=== PATIENT | female | born 1975 | race Caucasian/White ===

== ENCOUNTER 2018-12-25 12:07 | Emergency (ER) | payer OTHER ==
[~2018-12-25] VITALS: Ht 144.8 cm; Wt 70.7 kg
[2018-12-25 12:12] VITALS: BP 149/90
[2018-12-25] MEDS ORDERED: IV NORMAL SALINE 1,000ML 1,000 ML IV ONE (12:30)
[2018-12-25] MEDS ORDERED: KETOROLAC 30 MG/ML VIAL. IV ONE (12:30)
--- NOTE | 2018-12-25 12:33 | PHYS DOC ---
Past History Past Medical History: Anxiety, Depression, Diabetes, High Cholesterol, Hypertension Past Surgical History: Cholecystectomy Alcohol Use: Occasionally Drug Use: None Adult General Chief Complaint Chief Complaint: MECHANICAL FALL HPI HPI 43-year-old female presents after fall at work. Patient works at [employer]. She was breaking down some boxes when she slipped on something and fell straight back and hit her head against the floor. She did not lose consciousness. She does have a headache and feels slightly dizzy at this time. She denies any neck pain. EMS did place her in a collar precaution purposes. She denies numbness, tingling, altered sensation of any kind. She denies any other pain. Review of Systems Review of Systems Constitutional: Denies fever or chills [] Eyes: Denies change in visual acuity, redness, or eye pain [] HENT: Denies nasal congestion or sore throat [] Respiratory: Denies cough or shortness of breath [] Cardiovascular: No additional information not addressed in HPI [] GI: Denies abdominal pain, nausea, vomiting, bloody stools or diarrhea [] : Denies dysuria or hematuria [] Musculoskeletal: Denies back pain or joint pain [] Integument: Denies rash or skin lesions [] Neurologic: Headache. Denies focal weakness or sensory changes [] Endocrine: Denies polyuria or polydipsia [] All other systems were reviewed and found to be within normal limits, except as documented in this note. Current Medications Current Medications Current Medications Medications (Trade) Dose Ordered Sig/[facility] Start Time Stop Time Status Last Admin Dose Admin Ketorolac Tromethamine (Toradol 30mg Vial) 30 mg 1X ONCE 12/25/18 12:30 12/25/18 12:31 UNV Sodium Chloride 1,000 ml @ 1,000 mls/hr 1X ONCE 12/25/18 12:30 12/25/18 13:29 UNV Physical Exam Physical Exam Constitutional: Well developed, well nourished, no acute distress, non-toxic appearance. [] HENT: Normocephalic, atraumatic, bilateral external ears normal, oropharynx moist, no oral exudates, nose normal. [] Eyes: PERRLA, EOMI, conjunctiva normal, no discharge. [] Neck: Normal range of motion, no tenderness, supple, no stridor. [] Cardiovascular:Heart rate regular rhythm, no murmur [] Lungs & Thorax: Bilateral breath sounds clear to auscultation [] Abdomen: Bowel sounds normal, soft, no tenderness, no masses, no pulsatile masses. [] Skin: Warm, dry, no erythema, no rash. [] Back: No tenderness, no CVA tenderness. [] Extremities: No tenderness, no cyanosis, no clubbing, ROM intact, no edema. [] Neurologic: Alert and oriented X 3, normal motor function, normal sensory function, no focal deficits noted. [] Psychologic: Affect normal, judgement normal, mood normal. [] Current Patient Data Vital Signs Vital Signs Date Time Temp Pulse Resp B/P (MAP) Pulse Ox O2 Delivery O2 Flow Rate FiO2 12/25/18 12:12 98.2 115 18 97 Room Air EKG EKG Sinus tachycardia, rate 113, normal axis, no strabismus or depressions.[] Radiology/Procedures Radiology/Procedures [] Impressions: Examination: CT HEAD WO CONTRAST History: Fall, hit the head, pain Comparison/Correlation: None Findings: Axial images of the head were obtained without contrast. Mild atrophy is present. No intracranial hemorrhage, midline shift, or mass effect. Bony structures are unremarkable. Impression: No acute process. PQRS Compliance Statement: One or more of the following individualized dose reduction techniques were utilized for this examination: 1. Automated exposure control 2. Adjustment of the mA and/or kV according to patient size 3. Use of iterative reconstruction technique Electronically signed by: Dean Siddiqi MD (12/25/2018 12:43 PM) [facility] DICTATED AND SIGNED BY: DEAN SIDDIQI MD DATE: 12/25/18 1243 CC: BENEDICT MORAN DO ~ Course & Med Decision Making Course & Med Decision Making Pertinent Labs and Imaging studies reviewed. (See chart for details) I evaluated the patient's neck while she was in a cervical collar. She had no bony tenderness. I removed the collar and evaluated range of motion. She had no numbness or tingling or significant pain with these motions. Her cervical collar is not necessary. The patient's head CT is negative for acute findings. Her EKG shows sinus tachycardia. The patient tells me that she has known tachycardia at baseline. She is not sure why but states that this is a chronic problem. For her headache, given her 30 mg of Toradol and a liter of normal saline. I have additionally given her 10 mg of Reglan and 25 mg Benadryl. The patient has urinary tract infection. I will give her 1 g of Rocephin IV in the ED and nitrofurantoin for 5 days at home. She is feeling better at this time. She is stable for discharge. [] Dragon Disclaimer Dragon Disclaimer This electronic medical record was generated, in whole or in part, using a voice recognition dictation system. Departure Departure: Impression: Primary Impression: Fall from slip, trip, or stumble Additional Impressions: Closed head injury Urinary tract infection Disposition: HOME, SELF-CARE Condition: STABLE Patient Instructions: Head Injury, Adult, [id number] Scripts Nitrofurantoin Monohyd/M-Cryst (MACROBID 100 MG CAPSULE) 100 Mg Capsule 1 CAP PO BID for UTI, #10 CAP Prov: BENEDICT MORAN DO 12/25/18 Problem Qualifiers Primary Impression: Fall from slip, trip, or stumble Encounter type: initial encounter Qualified Codes: W01.0XXA - Fall on same level from slipping, tripping and stumbling without subsequent striking against object, initial encounter Additional Impressions: Closed head injury Encounter type: initial encounter Qualified Codes: S09.90XA - Unspecified injury of head, initial encounter Urinary tract infection Urinary tract infection type: acute cystitis Hematuria presence: with hematuria Qualified Codes: N30.01 - Acute cystitis with hematuria BENEDICT MORAN DO Dec 25, 2018 12:33
--- NOTE | 2018-12-25 12:46 | RAD ---
Examination: CT HEAD WO CONTRAST History: Fall, hit the head, pain Comparison/Correlation: None Findings: Axial images of the head were obtained without contrast. Mild atrophy is present. No intracranial hemorrhage, midline shift, or mass effect. Bony structures are unremarkable. Impression: No acute process. PQRS Compliance Statement: One or more of the following individualized dose reduction techniques were utilized for this examination: 1. Automated exposure control 2. Adjustment of the mA and/or kV according to patient size 3. Use of iterative reconstruction technique Electronically signed by: Johnnie Ahn MD (12/25/2018 12:43 PM) [facility]
[2018-12-25 12:50] LABS: BACTERIA,URINE MANY /HPF (0-FEW); BILIRUBIN,URINE NEG (NEG); CLARITY,URINE CLOUDY; COLOR,URINE YELLOW; GLUCOSE,URINE >=1000 mg/dL (NEG); NITRITE,URINE POS (NEG); SQUAMOUS EPITHELIAL CELL,UR FEW /LPF; UROBILINOGEN,URINE 0.2 mg/dL (0.2 mg/dL); WBC,URINE >40 /HPF (0-4)
[2018-12-25 13:07] LABS: BASO # 0.1 x10^3/uL (0.0-0.2); BASO % 1 % (0-3); EOS # 0.3 x10^3/uL (0.0-0.7); EOS % 2 % (0-3); HEMATOCRIT 33.4 % (36.0-47.0); HEMOGLOBIN 10.6 g/dL (12.0-15.5); LYMPH # 2.3 x10^3/uL (1.0-4.8); LYMPH % 17 % (24-48); MEAN CORPUSCULAR HEMOGLOBIN 25 pg (25-35); MEAN CORPUSCULAR HGB CONC 32 g/dL (31-37); MEAN CORPUSCULAR VOLUME 80 fL (79-100); MONO # 0.5 x10^3/uL (0.0-1.1); MONO % 4 % (0-9); NEUT # 9.9 x10^3uL (1.8-7.7); NEUT % 75 % (31-73); PLATELET COUNT 277 x10^3/uL (140-400); RED BLOOD COUNT 4.19 x10^6/uL (3.50-5.40); RED CELL DISTRIBUTION WIDTH 15.3 % (11.5-14.5); WHITE BLOOD COUNT 13.1 x10^3/uL (4.0-11.0)
[2018-12-25 13:07] LABS: AMPHETAMINE/METHAMPHETAMINE NEG (NEG); BARBITURATES NEG (NEG); BENZODIAZEPINES NEG (NEG); CANNABINOIDS NEG (NEG); COCAINE NEG (NEG); METHADONE NEG (NEG); OPIATES NEG (NEG); PHENCYCLIDINE NEG (NEG)
[2018-12-25] MEDS ORDERED: METOCLOPRAMIDE HCL 10 MG/2 ML VIAL. IV ONE (13:15)
[2018-12-25] MEDS ORDERED: diphenhydrAMINE 50 MG/ML VIAL IVP ONE (13:15)
[2018-12-25] MEDS ORDERED: NITR100C62 PO (13:56)
[2018-12-25 14:00] LABS: ALBUMIN 3.1 g/dL (3.4-5.0); ALBUMIN/GLOBULIN RATIO 0.9 (1.0-1.7); ALK PHOS 108 U/L (46-116); ALT (SGPT) 19 U/L (14-59); ANION GAP 7 (6-14); AST (SGOT) 12 U/L (15-37); BLOOD UREA NITROGEN 10 mg/dL (7-20); BUN/CREATININE RATIO 13 (6-20); CALCIUM 8.4 mg/dL (8.5-10.1); CARBON DIOXIDE 27 mmol/L (21-32); CHLORIDE 104 mmol/L (98-107); CREATININE 0.8 mg/dL (0.6-1.0); GFR 77.6; GLUCOSE 215 mg/dL (70-99); POTASSIUM 4.6 mmol/L (3.5-5.1); SODIUM 138 mmol/L (136-145); TOTAL PROTEIN 6.7 g/dL (6.4-8.2)
[2018-12-25] MEDS ORDERED: cefTRIAXone SODIUM 1 GM VIAL ONE (14:01)
[2018-12-25] MEDS ORDERED: IV NORMAL SALINE 50ML 50 ML ONE (14:01)
[2018-12-25 14:02] LABS: TOTAL BILIRUBIN < 0.1 mg/dL (0.2-1.0)
--- NOTE | 2018-12-25 14:47 | EKG ---
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
== END 2018-12-25 14:47 | disposition home or self-care (01) ==
LOC: ER 12:10
DX: S09.90XA Unspecified injury of head, initial encounter (principal); N30.01 Acute cystitis with hematuria; R42 Dizziness and giddiness; E11.9 Type 2 diabetes mellitus without complications; E78.00 Pure hypercholesterolemia, unspecified; I10 Essential (primary) hypertension; W01.0XXA Fall on same level from slipping, tripping and stumbling without subsequent striking against object, initial encounter; Y93.89 Activity, other specified; Y92.89 Other specified places as the place of occurrence of the external cause; Y99.8 Other external cause status
CPT/HCPCS: 36415; 70450; 80053; 80307; 81001; 85025; 87086; 87186; 93005; 96361; 96365; 96375; 99285; J0696; J1200; J1885; J2765; J7030